=== PATIENT | female | born 1990 | race Two or more races ===

== ENCOUNTER 2021-01-21 11:27 | Emergency (ER) | payer SELFPAY ==
[~2021-01-21] VITALS: Ht 157.5 cm; Wt 77.1 kg
--- NOTE | 2021-01-21 11:27 | NUR ---
PT BIB SELF C/O ON & OFF CHEST PAIN PRESSURE LIKE AND SOB X 1 WEEK. PT IS AAOX4, NOT IN RESPIRATORY DISTRESS, HOOKED TO [employer], KEPT RESTED AND COMFORTABLE. WILL CONTINUE TO MONITOR.
--- NOTE | 2021-01-21 11:35 | NUR ---
URINE SPECIMEN COLLECTED AND SENT TO LAB.
--- NOTE | 2021-01-21 11:45 | NUR ---
IV LINE ESTABLISHED BLOOD DRAWN AND SENT TO LAB.
[2021-01-21 11:52] LABS: BASOPHILS % (AUTO) 0.2 % (0.0-2.0); EOSINOPHILS % (AUTO) 1.2 % (0.0-6.0); HEMATOCRIT 40 % (33-45); HEMOGLOBIN 13.6 g/dL (11.5-14.8); LYMPHOCYTES # (AUTO) 2.4 /CMM (0.8-4.8); LYMPHOCYTES % (AUTO) 32.3 % (20.0-44.0); MEAN CORPUSCULAR HGB CONC 34 g/dl (31.0-36.0); MEAN CORPUSCULAR VOLUME 92 fL (82-100); MONOCYTES # (AUTO) 0.4 /CMM (0.1-1.30); MONOCYTES % (AUTO) 4.8 % (2.0-12.0); NEUTROPHILS # (AUTO) 4.5 /CMM (1.8-8.9); NEUTROPHILS % (AUTO) 61.5 % (43.0-81.0); PLATELET COUNT (AUTO) 258 /CMM (150-450); RED BLOOD CELL COUNT(AUTO) 4.29 MIL/uL (4.0-5.2); WHITE BLOOD COUNT (AUTO) 7.3 K/uL (4.3-11.0)
[2021-01-21 12:00] LABS: CALCIUM, SERUM 8.8 mg/dL (8.5-10.1); CARBON DIOXIDE 28 mmol/L (21-32); CHLORIDE 104 mmol/L (98-107); CREATININE 0.7 mg/dL (0.6-1.3); GLUCOSE 96 mg/dL (74-106); POTASSIUM 3.8 mmol/L (3.5-5.1); SODIUM SERUM 139 mmol/L (136-145); UREA NITROGEN, BLOOD 12 mg/dL (7-18)
[2021-01-21] MEDS ORDERED: IOHEXOL-350 100 ML VIAL IV ONE (12:34)
[2021-01-21] MEDS ORDERED: CT SWABBABLE VALVE TRANS SET 1 EA INFUS.SET MC ONE (12:34)
--- NOTE | 2021-01-21 13:41 | NUR ---
IV removed. Catheter intact and site benign. Pressure and 4x4 applied to site. No bleeding noted. Patient discharged to home in stable condition. Written and verbal after care instructions given. Patient verbalizes understanding of instruction.
[2021-01-21 13:42] VITALS: BP 121/63
== END 2021-01-21 13:42 | disposition home or self-care (01) ==
LOC: ER 11:33
DX: R09.1 Pleurisy (principal)
CPT/HCPCS: 36415; 71045; 71275; 80048; 83880; 84484; 84703; 85025; 85378; 93005 ×2; 99285; Q9967